=== PATIENT | male | born 1985 | race Caucasian/White ===

== ENCOUNTER 2017-03-01 17:19 | Emergency (ER) | payer SELFPAY ==
[~2017-03-01] VITALS: Ht 193 cm; Wt 83.6 kg
[~2017-03-01 17:19] MED LIST: CEPHALEXIN500 M1 PO; DEPAKOTE500 MG PO; DILANTIN 100MG100 MG PO; FLEXERIL 1010 MG/TAB PO; LORTAB 5/500 501 TAB PO; MAALOX ANTACID1 TAB PO; NO HOME MEDICATIONS; NORCO 325 MG-51 TAB PO; PROMETHAZINE12.5 M5 PO; TEGRETOL 2200 MG/TA1 PO; ZITHROMAX Z PA250 MG PO
[2017-03-01 17:23] VITALS: BP 108/73; TEMP 98.4
[2017-03-01] MEDS ORDERED: ULTRAM 50MG TAB50 MG PO (19:27)
[2017-03-01 19:47] VITALS: PULSE 85
== END 2017-03-01 19:47 | disposition home or self-care (01) ==
LOC: COL.ER 17:19
DX: S30.0XXA Contusion of lower back and pelvis, initial encounter (principal); F17.210 Nicotine dependence, cigarettes, uncomplicated; Z87.19 Personal history of other diseases of the digestive system; W01.0XXA Fall on same level from slipping, tripping and stumbling without subsequent striking against object, initial encounter; W22.8XXA Striking against or struck by other objects, initial encounter
CPT/HCPCS: J1885; J2360

== ENCOUNTER 2021-08-23 13:18 | Emergency (ER) | payer SELFPAY ==
[~2021-08-23] VITALS: Ht 175.3 cm; Wt 81.8 kg
[~2021-08-23 13:18] MED LIST changes: +ULTRAM 50MG TAB50 MG PO
[2021-08-23 13:39] VITALS: TEMP 98.2
[2021-08-23 14:27] VITALS: BP 109/80; PULSE 64
== END 2021-08-23 14:32 | disposition home or self-care (01) ==
LOC: COL.ER 13:18
DX: B34.9 Viral infection, unspecified (principal); F17.200 Nicotine dependence, unspecified, uncomplicated; Z20.822 Contact with and (suspected) exposure to COVID-19

== ENCOUNTER 2024-01-05 08:58 | Emergency (ER) | payer SELFPAY ==
[~2024-01-05] VITALS: Ht 190.5 cm; Wt 68.2 kg
[~2024-01-05 08:58] MED LIST changes: +PERCOCET 325 MG1 TA2 PO; +PROTONIX 40MG T40 MG PO
[2024-01-05 09:05] VITALS: TEMP 97.5
[2024-01-05] MEDS ORDERED: fentaNYL 50 MCG/ML 2 ML VIAL IV ONE (09:30)
[2024-01-05] MEDS ORDERED: NS 1,000 ML IV ONE ×2 (09:30→11:15)
[2024-01-05 09:34] LABS: BASO # 0.1 K/mm3 (0.0-0.2); BASO % 0.9 % (0.0-2.0); EOS # 0.6 K/mm3 (0.0-0.7); GRAN # 7.3 K/mm3 (1.4-6.5); GRAN % 57.4 % (42.2-75.2); HEMOGLOBIN 16.9 g/dl (13.5-18.0); LYMPH # 3.6 K/mm3 (1.2-3.4); LYMPH % 28.7 % (20.0-51.0); MEAN CELL VOLUME 91 fl (80.0-100.0); MEAN CORPUSCULAR HEMOGLOBIN 31 pg (27-31); MEAN CORPUSCULAR HGB CONC 34 g/dl (33.0-37.0); MEAN PLATELET VOLUME 10.5 fl (7.4-10.4); MONO % 7.6 % (1.7-9.3); PLATELET COUNT 258 K/mm3 (130-400); RED BLOOD COUNT 5.52 M/mm3 (4.20-5.60); REDCELL DISTRIBUTION WIDTH-CV 12.3 % (11.5-14.5)
[2024-01-05] MEDS ORDERED: NS 100 ML IV ONE (09:44)
[2024-01-05] MEDS ORDERED: Iohexol 300 - 100 ML VIAL IV ONE (09:44)
[2024-01-05 09:50] LABS: ALBUMIN 3.9 g/dL (3.5-5.0); BILIRUBIN,TOTAL 0.4 mg/dL (0.2-1.2); CALCIUM 10.2 mg/dL (8.4-10.2); CREATININE, serum 1.28 mg/dL (0.72-1.25); MAGNESIUM 2.3 mg/dL (1.6-2.6); POTASSIUM 4.3 mEq/L (3.5-4.5); TOTAL PROTEIN 7.7 g/dl (6.2-8.1)
[2024-01-05 09:56] LABS: TROPONIN-I 0.015 ng/mL (0.00-0.033)
[2024-01-05 10:37] LABS: COLLECTION METHOD CLEAN CATCH
[2024-01-05 10:41] LABS: URINE APPEARANCE CLEAR (CLEAR/HAZY); URINE BLOOD NEGATIVE (NEGATIVE); URINE COLOR YELLOW (YELLOW); URINE GLUCOSE NEGATIVE (NEGATIVE); URINE KETONE NEGATIVE (NEGATIVE); URINE NITRATE NEGATIVE (NEGATIVE); URINE PROTEIN(semi-quant) NEGATIVE (NEGATIVE); URINE UROBILINOGEN 0.2 E.U/dL (0.2-1.0)
[2024-01-05 10:53] LABS: TRICYCLIC ANTIDEPRESS URINE NEGATIVE (NEGATIVE)
[2024-01-05] MEDS ORDERED: PREDNISONE20 MG PO (11:48)
[2024-01-05] MEDS ORDERED: NORCO 325 MG-51 TAB PO (11:48)
[2024-01-05 11:56] VITALS: BP 106/76; PULSE 61
== END 2024-01-05 12:05 | disposition home or self-care (01) ==
LOC: COL.ER 08:58
PROVIDERS: Family Medicine
DX: S20.20XA Contusion of thorax, unspecified, initial encounter (principal); R10.9 Unspecified abdominal pain; X58.XXXA Exposure to other specified factors, initial encounter
CPT/HCPCS: J3010; J7030; Q9967